=== PATIENT | female | born 2000 | race Caucasian/White ===

== ENCOUNTER 2019-10-23 16:30 | Outpatient (REF) | payer BC, SELFPAY ==
[2019-10-27 14:31] LABS: Chlamydia Result Negative (Negative); GC Result Negative (Negative)
== END 2019-10-23 16:50 ==
LOC: LBN 16:30
PROVIDERS: Visit Provider Nurse Practitioner Family
DX: Z11.3 Encounter for screening for infections with a predominantly sexual mode of transmission (principal)
CPT/HCPCS: 87491; 87591

== ENCOUNTER 2020-02-09 11:40 | Outpatient (REF) | payer BC, SELFPAY ==
--- NOTE | 2020-02-09 11:30 | PAPFT_PTH ---
PATIENT: ARIES LEE LOC: [facility] U#:[id number] AGE/SX: 20/F ROOM: RE02/09/[address]: CELESTINE Patterson : 2000 BED: DIS: 02/09/2020 SPEC #: [id number] RECD: 02/09/20 12:43 STATUS: PETROS REAraceli #: [id number] VERENA: 02/09/20 11:[address]: Brittany Nguyen DEPT: [facility] Cytology RECD BY: Lisa Thurston Tissues: 1 - CX/ENDOCX FOR PAP SMEARS Procedures: PAP THIN PREP/[facility] Screening Comments: [id number]
== END 2020-02-09 12:00 ==
LOC: LBN 11:40
PROVIDERS: Visit Provider Nurse Practitioner Family
DX: Z12.4 Encounter for screening for malignant neoplasm of cervix (principal)
CPT/HCPCS: 88142

== ENCOUNTER 2020-06-15 03:02 | Outpatient (CLI) | payer BC, SELFPAY ==
[2020-06-17 00:15] LABS: COVID-19 RT-PCR Result NEGATIVE (Negative)
== END 2020-06-15 03:22 ==
PROVIDERS: Visit Provider Pediatrics
DX: Z20.828 Contact with and (suspected) exposure to other viral communicable diseases (principal)
CPT/HCPCS: U0003